=== PATIENT | female | born 1985 | race Caucasian/White ===

== ENCOUNTER 2017-07-31 20:07 | Emergency (ER) | payer OTHER ==
[~2017-07-31] VITALS: Ht 152.4 cm; Wt 72.6 kg
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
[2017-07-31] MEDS ORDERED: METHADONE HCL10 M1 PO (20:20)
[2017-07-31 21:02] LABS: ABSOLUTE BASOPHIL COUNT 0 /CUMM (0.0-0.2); ABSOLUTE EOSINOPHIL COUNT 0 /CUMM (0.0-0.7); ABSOLUTE GRANULOCYTE CT 10.6 /CUMM (1.4-6.5); ABSOLUTE LYMPH COUNT 1.8 /CUMM (1.2-3.4); ABSOLUTE MONOCYTE COUNT 0.6 /CUMM (0.10-0.60); BASOPHIL % 0.2 % (0.0-2.0); EOSINOPHIL % 0.2 % (0-5); GRANULOCYTE % 81.4 % (42.2-75.2); HEMATOCRIT 46.4 % (37-47); MEAN CORPUSCULAR HGB 28.7 PG (27.0-31.0); MEAN CORPUSCULAR HGB CONC 32.9 G/DL (33.0-37.0); MEAN CORPUSCULAR VOLUME 87.3 FL (81.0-99.0); MEAN PLATELET VOLUME 8.5 FL (7.4-10.4); PLATELET COUNT 257 /CUMM (130-400); RBC DISTRIBUTION WIDTH 13.2 % (11.5-14.5); RED BLOOD CELL CT 5.32 /CUMM (4.20-5.40)
[2017-07-31 22:30] VITALS: BP 134/71
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
[2017-07-31] MEDS ORDERED: NAPROXEN500 M2 PO (23:35)
[2017-07-31] MEDS ORDERED: CYCLOBENZAPRINE10 M1 PO (23:35)
== END 2017-07-31 23:45 ==
LOC: ERH 20:07
PROVIDERS: Internal Medicine
DX: S12.9XXA Fracture of neck, unspecified, initial encounter (principal); V47.5XXA Car driver injured in collision with fixed or stationary object in traffic accident, initial encounter; Y92.9 Unspecified place or not applicable
CPT/HCPCS: 73562-LT; 74177; 81025; 96374; 96375; J0131; J1885